=== PATIENT | female | born 1960 | race Caucasian/White ===

== ENCOUNTER 2023-12-22 11:00 | Outpatient (CLI) | payer MEDICARE, MEDICAID, SELFPAY ==
--- NOTE | 2023-12-22 09:30 | DI.RAD_ITS ---
Exam(s) XR PELVIS PREOP ORTHO EXAM: XR PELVIS PREOP ORTHO CLINICAL HISTORY: preop planning SUZANNA. TECHNIQUE: 2D digital imaging was performed.One images were obtained. COMPARISON: DX XR HIP MIN 2V LT from 07/08/2009 FINDINGS: BONES: No acute fracture is present. No bony destructive lesion is seen. JOINTS: No dislocation present. In the left hip there is loss of the superior joint space with bone o n bone. There is also mild flattening of the articular surface of both the acetabulum and the femora l head. There is subchondral sclerosis of the acetabulum and acetabular spurring. Subchondral cysts and sclerosis are seen at the articular surface of the femoral head. This may be degenerative in na ture, however underlying avascular necrosis should also be considered. There is moderate narrowing o f the right hip joint space. SOFT TISSUE: Normal. IMPRESSION: Advanced arthrosis of the left hip as described above. DATA REPOSITORY: RADIATION DOSE DELIVERED:
== END 2023-12-22 11:01 | disposition home or self-care (01) ==
LOC: DIORS 11:01
PROVIDERS: PCP Family Medicine; Referring Provider Family Medicine; Visit Provider Student in an Organized Health Care Education/Training Program
DX: M16.12 Unilateral primary osteoarthritis, left hip (principal)
CPT/HCPCS: 99203; 72190

== ENCOUNTER 2024-01-17 09:44 | Observation (INO) | payer MEDICARE, MEDICAID, SELFPAY ==
[2024-01-17] VITALS (19 sets, daily range): BP systolic 93–141; BP diastolic 42–82; PULSE 47–75; RESP 1–23; TEMP 36–37.1; O2SAT 93–100; BMI 39.4
[2024-01-17] MEDS: Celecoxib 200 MG CAP 400 MG PO (08:39)
[2024-01-17] MEDS: Lactated Ringers 1,000 ML 80 ML IV (08:39)
[2024-01-17] MEDS: Acetaminophen 500 MG TAB 1000 MG PO ×3 (08:40→22:38)
--- NOTE | 2024-01-17 08:44 | W.ANESPRE ---
General Info Date of Service Date Performed: 01/17/24 Height: 5 ft 8.5 in Weight: 119.4 kg Body Mass Index (BMI): 39.4 Surgical Procedure: Operation Date: 01/17/24 11:20 Proposed Procedure Side Surgeon p Hip Total Hip Anterior, ACTIS Left Marcos Gibbs MD Meds Allergies and Home Medications Allergies Allergy/AdvReac Type Severity Reaction Status Date / Time enalapril Allergy Unknown unlisted Verified 01/17/24 08:30 amoxicillin Allergy Itching Verified 01/17/24 08:30 codeine AdvReac Mild vomiting Verified 01/17/24 08:30 letrozole AdvReac Unknown Unknown Verified 01/17/24 08:30 acetaminophen (From Vicodin) AdvReac chest Verified 01/17/24 08:30 tightness cephalexin AdvReac vomiting Verified 01/17/24 08:30 hydrocodone (From Vicodin) AdvReac chest Verified 01/17/24 08:30 tightness omeprazole AdvReac Other (See Verified 01/17/24 08:30 Comment) Home Medication ?Medication ?Instructions ?Recorded acetaminophen 500 mg tablet 500 mg PO Q6H PRN 10/11/23 albuterol 90 mcg/actuation aerosol mcg inhalation DIRECTED 10/11/23 inhaler amlodipine 5 mg tablet 5 mg PO DAILY 10/11/23 cetirizine 10 mg tablet 10 mg PO DAILY PRN 10/11/23 chlorthalidone 25 mg tablet 12.5 mg PO DAILY 10/11/23 cholecalciferol (vitamin D3) 50 100 mcg PO DAILY 10/11/23 mcg (2,000 unit) capsule fluticasone furoate 200 1 inh inhalation DAILY 10/11/23 mcg/actuation blister powder for inhalation (Arnuity Ellipta) fluticasone propionate 50 1 spray intranasal BID 10/11/23 mcg/actuation nasal spray,suspension (Allergy Relief (fluticasone)) ipratropium bromide 17 2 puff inhalation Q8H 10/11/23 mcg/actuation HFA aerosol inhaler (Atrovent HFA) potassium chloride 20 mEq 20 meq PO DAILY 10/11/23 tablet,extended release vit C-vit M-ciegom-bjzikslp capsule 1 cap PO DIRECTED 10/11/23 flaxseed oil 1,000 mg capsule 1,000 mg PO DAILY 12/22/23 magnesium oxide 400 mg (241.3 mg 400 mg PO DAILY 12/22/23 magnesium) tablet mecobalamin (vitamin B12) 2,500 2,500 mcg PO DAILY 12/22/23 mcg chewable tablet kfuhzude-[id number]-[id number] 250 mg-dha 90 1 cap PO DAILY 12/22/23 mg-epa 160 ox-aybd-gaap-zeax capsule (Ocuvite Adult 50 Plus) Current Visit Medications: Current Medications Generic Name Dose Route Start Last Admin Trade Name Frelemuel PRN Reason Stop Dose Admin Acetaminophen 1,000 mg 01/17/24 06:00 01/17/24 08:40 Acetaminophen 500 Mg Tab PO 02/15/24 23:59 1,000 mg PREOP COREY Administration Celecoxib 400 mg 01/17/24 06:00 01/17/24 08:39 Celecoxib 200 Mg Cap PO 02/15/24 23:59 400 mg PREOP COREY Administration Ringer's Solution 1,000 mls @ 80 mls/hr 01/17/24 06:00 01/17/24 08:39 IV 02/15/24 23:59 80 mls/hr INFUSION COREY Administration Tranexamic Acid/Sodium Chloride 1,000 mg in 100 mls @ 600 mls/hr 01/17/24 06:00 IVPB 02/15/24 23:59 PREOP COREY Cefazolin Sodium 3,000 mg/ 100 mls @ 200 mls/hr 01/17/24 06:00 Sodium Chloride IVPB 01/17/24 16:00 PREOP COREY IV Miscellaneous Supplies 1 each 01/17/24 06:00 Iv Access IV 02/15/24 23:59 DIRECTED COREY Sodium Chloride 0 ml 01/17/24 06:00 Normal Saline Flush 10 Ml Syr IV 02/15/24 23:59 PRN PRN Sodium Chloride 0 ml 01/17/24 06:00 Normal Saline 10 Ml Vial IJ 02/15/24 23:59 DIRECTED PRN Sterile Water 0 ml 01/17/24 06:00 Water,Injection,Sterile 10 Ml Vial IJ 02/15/24 23:59 DIRECTED PRN PFSH Active Problems Active Problems: Problem Status Onset Code Osteoarthritis of left hip Acute M16.12 Obesity Chronic E66.9 Malignant tumor of breast Chronic C50.919 Hyperlipidemia Acute E78.5 Hypertensive disorder Chronic I10 Asthma Chronic J45.909 Medical History Medical History H/O hordeolum Verruca plantaris Rosacea Onychomycosis Fracture of right distal radius Surgical History Surgical History History of inguinal hernia repair History of left mastectomy Tobacco Smoking/Tobacco Use Status: Former Tobacco Use Alcohol Alcohol Intake: current Alcohol intake frequency: holidays/special occasions only Substance Use Substance use: Never Substance use type: does not use Vital Signs and Lab Results Vital Signs Most Recent Vital Signs in EMR: Most Recent Vital Signs Temp Pulse Resp BP Pulse Ox 37.1 C 75 16 139/79 99 01/17/24 08:33 01/17/24 08:33 01/17/24 08:33 01/17/24 08:33 01/17/24 08:33 Lab Results Blood Type / Crossmatch: No Data to Display Complete Blood Count: No Data to Display Complete Metabolic Panel: No Data to Display Liver Function Panel: No Data to Display Coagulation Panel: No Data to Display Cardiac Panel: No Data to Display Arterial Blood Gas: No Data to Display Venous Blood Gas: No Data to Display Pancreas Panel: No Data to Display Thyroid Panel: No Data to Display Infectious Disease: No Data to Display Blood Cultures: No Data to Display Toxicology Panel: No Data to Display Anesthesia Assessment and Plan Anesthesia History Personal History: PONV Family History: No Family History of Anesthesia Complications Exercise Tolerance Exercise Tolerance: Metabolic Equivalents<4 Pertinent Negatives Pertinent Negatives: No Symptoms of GERD, No Major Cardiovascular Symptoms or Complaints and No Major Pulmonary Symptoms or Complaints (some allergic nasal congestion with clear phlegm expectorated this am, used scheduled and rescue inhaler) Cardiac & Pulmonary Exam Cardiac Exam: Normal S1/S2 Heart Sounds Pulmonary Exam: Clear Bilateral Breath Sounds Implantable Cardiac Device Does patient have a Pacemaker or an ICD?: No Airway Exam Known Difficult Airway: No Mallampati Class: 2 Mouth Opening: Normal (> 3cm) Thyromental Distance: Greater than 3 cm Neck Range of Motion: Full ROM Neck Circumference: Normal Teeth Condition: Normal Dentition ASA Classification ASA Score: ASA 3 Emergency Case?: No NPO Status NPO Status: NPO Clears >2 hours, Solids >8 hours Anesthesia Plan Resuscitation Status: Full Code Anesthesia Technique: Spinal Anesthesia Airway Planned: Natural Airway Monitors Used: Standard Monitors Preoperative Comments:: Hx of severe PONV, plan palonosetron for prophylaxis.
[2024-01-17] MEDS: ceFAZolin 3,000 MG in Normal Saline 100 ML 200 MG IVPB (10:05)
[2024-01-17] MEDS: TRANEXAMIC ACID/SOD. CHL. 1,000 MG/100 ML BAG 600 MG IVPB (10:15)
--- NOTE | 2024-01-17 10:22 | W.PM.OP ---
Date of service: 01/17/24 Time of Service: 10:22 Operative Note Operative Note PRE-OP DIAGNOSIS: Left Hip Osteoarthritis POST-OP DIAGNOSIS: same PROCEDURE: Left Anterior Total Hip Arthroplasty with Intraoperative Navigation SURGEON: Marcos Gibbs ANESTHESIA TYPE: Spinal Refer to Anesthesia Record ESTIMATED BLOOD LOSS: 200 PATHOLOGY: none sent TOURNIQUET TIME: 0 COMPLICATIONS: None Patient was transported to: PACU Patient's condition: stable Implants: 1. Depuy [place] Acetabular Component, 58mm 2. Depuy Acetabular Liner, [id number] 3. Depuy Actis High Offset Collared Femoral Stem, Size 8 4. Depuy Altrx Ceramic Femoral Head, Size 36+1.5mm Indications: I have seen in clinic for symptoms of hip arthritis, confirmed with radiographic findings. has exhausted nonoperative methods and was having significant limitations in daily function and desired better function and less pain. I discussed the technical details of a hip replacement. I explained the risks of the procedure to include, but not limited to, bleeding, infection, pain, stiffness, fracture, damage to nerves and vessels, damage to muscles and tendons, loosening, instability, leg length inequality, need for repeat procedure, blood clot and cardiopulmonary demise. Despite these risks, elected to proceed. Findings: There was significant signs of arthritis throughout the hip with notable deformity of the femoral head. Procedure Description: was greeted in the preoperative holding area where the correct side was identified and marked. The consent was reviewed with the patient and signed. The history and physical was updated. All questions were answered. She was taken back to the operating room. A spinal anesthestic was then administered. The feet were wrapped with cast padding and Coban and then placed into the boot liners and then into the boots. Care was taken to protect the skin and make sure the heels were fully down and the boots were stable. The patient was then positioned onto the HANA table. Both legs were held in a neutral position. SCDs were applied. The patient was then slid down onto a peroneal post. Prophylactic antibiotics in the form of Cefazolin were administered. 1g of Tranxemic Acid was given intravenously within 30 minutes of incision. The left leg was then prepped with Chloraprep and draped in a standard fashion. A second prep with Chloraprep was performed prior to placement of a shower-curtain type drape with Iodine impregnated skin protection. A timeout to confirm correct identity, side and site, procedure, allergies, anesthesia, and medical concerns was performed. An obliquely oriented incision was made starting lateral to the ASIS and running distal over the Tensor Fascia Nelly (TFL) muscle belly toward the fibular head, approximately 10cm. The skin and soft tissue was dissected sharply, through Efrain?s fascia, and to the fascia of the TFL. With the fascia and superior border of the IT band identified, the fascia was incised with a new knife just above any perforators from the IT band. The TFL muscle belly was bluntly dissected away from the fascia and moved laterally. The fat between TFL and rectus was identified to ensure the dissection was not within the TFL. Blunt dissection created space between abductors and the capsule and retractor was placed over the lateral femoral neck. The fibers of the rectus femoris tendon were identified and these were freed from the anterior capsule. A second cobra retractor was placed around the medial femoral neck. The TFL was further retracted laterally to show the deep fascia. Careful dissection through this layer identified three main crossing vessels of the lateral femoral circumflex. These were cauterized in multiple locations and then cut without any noticeable bleeding. The TFL was further released bluntly from the deep fascia to expose anterior hip capsule and fat The [place] orthopaedic retractor was then placed beneath the TFL and against sartorius and medial soft tissues to protect and retract the soft tissues. A T-capsulotomy was then performed starting at the superior lateral acetabulum and moving distally to the intertrochanteric ridge. These capsular flaps were tagged with a No. 1 Ethibond and elevated from within. The capsular flaps were released to the shoulder of the lateral neck and to the lesser trochanter to give excellent visualization of the proximal femur. A neck osteotomy was performed using an oscillating saw based on preoperative templates. This cut started in the shoulder and of the lateral neck and exited medially. The saw was at all times directed medially to avoid injury to the greater trochanter. Gross traction was applied to the leg and the osteotomy opened. The femoral head was removed with a corkscrew, making sure to protect the TFL on its exit. The femoral head had notable deformity and flattening. Traction was released after head removal. This was measured on the back table to determine the starting reamer size. Portions of the rectus obscuring visualization were minimally elevated off the superior acetabulum. An anterior retractor was placed over the anterior wall between capsule and labrum and attached to the Gripper retraction system. The femur was rotated to 90 degrees and medial capsule was fully released until the lesser trochanter was palpable and visible; the femur was returned to 30 degrees. A posterior retractor was placed similarly between capsule and labrum. This provided excellent visualization. The contents of the cotyloid fossa were removed with electrocautery and the labrum was removed with a knife. There was a notable floor osteophyte. There was significant chondromalacia of the superior acetabulum. Acetabular reaming began with a 52mm reamer. This first reaming was directed anterior to posterior and medial to get down to the true floor. This was inspected and reamed until the true floor was reached. The anterior retractor was then released and entry and exit was provided by traction on the capsular flaps. I then reamed sequentially up to a 58mm reamer where good fit was obtained. The larger reamers were oriented based on anatomical reference of the anterior and lateral law to ensure proper abduction and anteversion. Positioning and size was confirmed with the fluoroscopy. A 58mm Depuy [place] acetabular component was selected. The acetabulum was reamed around the periphery with the selected acetabular size to prevent a rim fit. The deep tissues were irrigated. The acetabular component was then impacted in a position of about 40-45 degrees of abduction and 15-20 degrees of anteversion, using the patient?s anatomy as the ultimate landmark. Fluoroscopy was used to confirm this. There was excellent art history professor of the acetabular component and the inserting handle was removed. The acetabular liner, Depuy [id number] polyethylene liner, was inserted and lined up with the tines of the acetabular component. There was no soft tissue interposition. The liner was then impacted into position and confirmed to be well-seated. A portion of the jerri-articular cocktail was then injected around the acetabulum into the capsule and periosteum. This cocktail consisted of 123mg of Ropivacaine, 0.25mg of Epinephrine, 0.04mg of Clonidine, and 15mg of Ketorolac, diluted to 50cc. The leg was rotated to 120 degrees. Any remaining medial capsule was released until the lesser trochanter was easily palpable. A retractor was placed medially. The lateral capsule was further released into the shoulder to allow access to the greater trochanter. A Winter retractor was placed over the greater trochanter which allowed the trochanter to flip in front of the capsule for excellent exposure. The leg was brought down into maximal extension and 20 degrees of adduction while ensuring there was no impingement on the acetabulum. Any remnant capsule within the trochanter was released. Piriformis and obturator externis were identified and protected. There was excellent access to the proximal femur. The lateral neck remnant was removed with a rongeur. A blunt canal probe was used to identify the canal and trajectory for later broaching. A box osteotome initiated the broach course. A small curved rasp and a curved curette were used to work laterally. Broaching then began with a starter Actis broach. This was inserted manually around the trochanter and into the canal before mallet blows. The broach was seated to a few millimeters below the cut level based on the neck cut and the preoperative template. Sequential broaching was continued with the Socket Mobile pneumatic broaching device until a tight fit was obtained with good rotational control of the femur. A trial standard neck was inserted along with a +5 trial head. The leg was brought out of extension and adduction and then reduced with traction and internal rotation. The leg was stable anteriorly in a position of 30 degrees of extension and 90 degrees of external rotation. Fluoroscopy was used to ensure there was no fracture and the stem was seated well. Leg lengths were checked with an AP pelvis and pelvic reference points. [employer] navigation system was used to confirm appropriate positioning and leg length and offset. This showed that we had over-corrected leg length but slightly undercorrected offset, improved by using a high offset stem and +1.5mm head. Once content with the desired offset and leg lengths, the leg was brought back into extension, external rotation and adduction. The periosteum and surrounding tissue was injected with remaining portion of the jerri-articular cocktail. The proximal femur was irrigated as well as the deep tissues. The Depuy Actis high offset collared stem, size 8, was then manually inserted into the proximal femur making sure to control rotation. It was then malleted into position with light blows, giving breaks to allow bone expansion and decrease risk of fracture. The selected Depuy Altrx Ceramic Head, size 36+1.5mm, was then placed onto the clean and dry trunnion and secured with impaction onto the tapered fit. The leg was brought back out of extension and adduction and reduced with traction and internal rotation. Stability was confirmed with no shuck at 90 degrees of external rotation and 30 degrees of extension. No impingement through range of motion arc. Final x-ray images were obtained with fluoroscopy to confirm adequate positioning and no intraoperative fracture. The deep tissues were thoroughly irrigated with Surgiphor, betadine solution. This was allowed to sit in the wound for 3 minutes before being thoroughly irrigated out with normal saline. The capsule was then reapproximated with the previously placed Ethibond sutures. The TFL fascia was finally closed with a No. 2 Stratafix, barbed suture. Deep tissues were then reapproximated with 0 Vicryl and a running 2-0 Vicryl. The skin was closed with a running 4-0 Monocryl in a subcuticular fashion. This was reinforced with skin glue. A Mepilex silver dressing was applied. At the end of the case, all counts were correct. was transferred to the hospital bed without difficulty and suffering no apparent complication. has a good prognosis. Physical therapy will start today and without restrictions, weight-bearing as tolerated. Aspirin 81mg BID will be used for DVT prophylaxis.
--- NOTE | 2024-01-17 11:28 | DI.RAD_ITS ---
Exam(s) XR HIP LT IN OR EXAM: XR HIP LT IN OR CLINICAL HISTORY: left hip osteoarthritis TECHNIQUE: 2D and realtime digital imaging was performed. CONTRAST MATERIAL: Refer to procedure report. COMPARISON: CR XR PELVIS PREOP ORTHO from 12/22/2023 FINDINGS: Fluoroscopy was provided for Dr. Gibbs during the performance of a left total hip replacement. P lease refer to the procedure report for complete details. Ka,r=6.33 mGy IMPRESSION: RADIATION DOSE DELIVERED: 0.0 0.0 0
[2024-01-17] MEDS: fentaNYL 100 MCG/2 ML VIAL IVP (11:55)
--- NOTE | 2024-01-17 13:18 | PT.INIE ---
PT Notes Visit Reasons: Left hip DJD Physical Therapy Day Surgery Initial Evaluation Date: 01/17/2024 Referring Doctor: Daisy Paredes PT Orders: PT CONSULT: WBA no restrictions Precautions: Standard Patient Profile/Admitting Diagnosis: S/p left SUZANNA 01/17/2024 PMHX: All Active Problems (Updated 12/22/23 @ 08:56 by MOON Lerma) Osteoarthritis of left hip (Acute) Obesity (Chronic) Malignant tumor of breast (Chronic) Hyperlipidemia (Acute) Hypertensive disorder (Chronic) Asthma (Chronic) Medical History (Updated 12/22/23 @ 08:56 by MOON Lerma) Verruca plantaris Rosacea Onychomycosis Fracture of right distal radius Surgical History (Updated 10/11/23 @ 09:10 by Mimi Augustine RN) History of inguinal hernia repair History of left mastectomy Social History/Home Situation: Patient has assistance from her sister and her [id number] with getting in and out of her home which has a ramp and 1 step getting into the home. She has a RW at home and is advised to utilize this and is given guidance with progression to SPC. Equipment Owned/DME: RW Subjective: I am concerned that the RW will take off on me going down the ramp after PT session today this is confirmed that this would not happen and she feels much more confident and will use RW at home. She is also given advice as to how to progress to SPC versus using quad cane. Objective: Patient is presenting sitting in recliner alert and orientated noting that pain is starting to escalate General Observation: Patient appears generally healthy and able to carry on full conversation. Mental Status: A&O x 3 Pain: 5/10 ROM: Right Upper Extremity: WFL Left Upper Extremity: WFL Right Lower Extremity: WFL Left Lower Extremity: Mildly limited hip flexion 100 and seated Strength: Right Upper Extremity: WFL Left Upper Extremity: WFL Right Lower Extremity: WFL, did not test PF Left Lower Extremity: Unable to test PF has 3/5 within available ROM of hip flexion, knee extension and knee flexion did not test abduction Sensation: Intact to light touch LE except for over surgical area Bed Mobility/Transfers: NT as patient was found sitting Sit to stand independent Stand to sit independent Bed to chair NT Gait: Ambulates with RW with VC for pacing encouraging patient to actively flex knee after midstance and to perform step through gait pattern as she feels more comfortable. She is independent with ambulation and with safe with ambulation for 150 feet. Balance: Static Sitting: Normal Dynamic Sitting: normal Static Standing: Good Dynamic Standing: Poor is unable to stand on single leg and needs support making managing stairs without rail difficult she does only have 1 step at home and she has assist of 2 to help her get into her home. She has good understanding of dynamics of stair progression. Special Tests: Negative Jyoti Treatment:Therapeutic Activities - (37487 x[1]): instruction in dynamic activities with one on one patient contact by the provider to improve functional performance?as follows: ? Review of DVT and preambulation exercises as issued in handout. Transfers of sit to stand stand to sit and on and off toilet all performed today with patient needing guidance for hand placement until able to perform a couple of repetitions independently. She is able to do without assistance. Ambulation with RW, for 150 feet, including changing directions maneuvering utilizing clock step to avoid any pivoting. Patient is encouraged to perform a step through gait pattern she initially starts with step to gait pattern and locks her left leg she is encouraged to perform normal ambulation techniques with walking utilizing the RW for balance and to decrease leaning on the RW. She is independent with this. We also perform stairs 1 at a time good leading with the right going up and down leading with the left, we do perform this with moderate assist as patient has no rails at home we would like to educate her with use of no railing such that she can get into her home. She actually only has 1 stair at home and this is instructed to her sister who she will also be helping her get into her home. Informed Consent/Education: Patient instructed in purpose of PT consult. Packet containing SUZANNA exercise protocol has been given to patient. Education and training on initial set of exercises that can be done at home have been completed with patient. Assessment: Patient presents with clinical signs and symptoms consistent with current/admitting diagnoses that have resulted to mobility limitations, gait instability, generalized weakness, and impairment of motor control as demonstrated by the following impairment level findings: 1. Decreased strength to left knee major muscle groups 2. Impaired standing balance 3. Limitation of joint range of motion in left knee Impairments are contributing to the following functional limitations: 1. Inability to safely ambulate without assistive device 2. Increase completion time for mobility ADL performance 3. Increased fall risk Patient is assessed as a low complexity based on the following: History: 63-year-old female with impairment level findings, functional limitations, and past medical history as indicated above Examination: Demonstrable impairment in strength, balance, and mobility level with underlying impairments and functional limitations as documented above Presentation: Evolving Decision Making: Low Goals: N/A. PT evaluation and 1 treatment session only for functional mobility training using recommended AD and for HEP instruction. Plan of Care/Treatment Plan: N/A. PT evaluation and 1 treatment session only for functional mobility training using recommended AD and for HEP instruction. DISCHARGE RECOMMENDATIONS: Home, has RW at home TREATMENT CODE/TIME: 64934/[id number] 1:35-2:05 30' Thank you for the opportunity to participate in the care of this patient. Please sign an return this page within 30 days if you agree with the above POC. Thank you! Physician Signature Date [facility]
--- NOTE | 2024-01-17 13:28 | W.ANESPOSTOP ---
Postoperative Evaluation Date, Time and Location Date Performed: 01/17/24 Time Performed: 12:52 Patient Location: Day Surgery Unit Vital Signs Most Recent Imported Vital Signs: Most Recent Vital Signs Temp Pulse Resp BP Pulse Ox 36.4 C L 60 16 139/82 93 01/17/24 12:53 01/17/24 12:53 01/17/24 12:53 01/17/24 12:53 01/17/24 12:53 Pain Score Most Recent Pain Score: Most Recent Pain Score Pain Level 2 01/17/24 12:53 Assessment Mental Status: Awake (Alert & Oriented to Patient Baseline) Airway and Respiratory Function: Patent airway with normal (patient baseline) respiratory exam Cardiovascular Function: Hemodynamically Stable Hydration Status: Adequately Hydrated Nausea & Vomiting: No Nausea or Vomiting Pain: Pain is tolerable per patient Peripheral Nerve Block: Patient did not receive a nerve block
[2024-01-17] MEDS: oxyCODONE 5 MG TAB PO (13:30)
[2024-01-17] MEDS: Midodrine 2.5 MG TAB PO (17:25)
[2024-01-17] MEDS: DEXTROSE 5%-WATER 500 ML 1000 ML IV (18:20)
[2024-01-17] MEDS: Lactated Ringers 1,000 ML 30 ML IV (19:00)
[2024-01-17] MEDS: Celecoxib 200 MG CAP PO (20:10)
[2024-01-17] MEDS: ceFAZolin 1 GM/50 ML BAG IVPB (20:11)
[2024-01-17] MEDS: Aspirin E.C. 81 MG TABEC PO (20:11)
[2024-01-18] MEDS: ceFAZolin 1 GM/50 ML BAG IVPB (02:59)
[2024-01-18 03:20] VITALS: BP 128/71; PULSE 58; RESP 18; TEMP 36.3; O2SAT 99
[2024-01-18] MEDS: Acetaminophen 500 MG TAB 1000 MG PO (05:44)
--- NOTE | 2024-01-18 07:12 | DSE_ITS ---
Date of service: 01/18/24 Time of Service: 07:12 DS: Diagnosis Discharge Diagnosis (1) Osteoarthritis of left hip: Status: Acute Discharge Plan Disposition Patient Disposition: Home Condition: Good Discharge Details Reason For Visit: Left hip DJD Admit Date/Time: 01/17/24 18:03 Admit Provider: Marcos Gibbs Attending Provider: Marcos Gibbs Primary Care Provider: Bautista Fernandez Hospital Course Hospital Course: Patient was admitted to the medical/surgical floor following the procedure due to some persistent nausea and lightheadedness. Otherwise, the surgery was tolerated well without any notable medical, surgical, or anesthetic complications. Mobilization began postoperatively. She was voiding spontaneously. Vitals were stable. Physical therapy worked with the patient and was cleared for discharge home. She was observed overnight and had improvement with her symptoms. Pain was controlled on oral regimen. Home Meds and New Rx's Prescriptions: New celecoxib [Celebrex] 200 mg capsule 200 mg PO BID PRNQty: 60 0RF Rx Instructions: Take one tablet twice daily for pain and inflammation aspirin 81 mg tablet,delayed release (DR/EC) 81 mg PO BID 30 Days Qty: 60 0RF acetaminophen 500 mg tablet 1,000 mg PO Q8H PRN Qty: 90 0RF Rx Instructions: Take two tablets up to every 8 hours as needed for pain pantoprazole 40 mg tablet,delayed release (DR/EC) 40 mg PO DAILY 14 Days Qty: 14 0RF dexamethasone 4 mg tablet 4 mg PO DAILY Qty: 2 0RF Rx Instructions: Take one tablet once daily for two days docusate sodium [Colace] 100 mg capsule 100 mg PO BID Qty: 30 0RF tramadol 50 mg tablet 50 mg PO Q4H PRNQty: 18 0RF Continued magnesium oxide 400 mg (241.3 mg magnesium) tablet 400 mg PO DAILY mecobalamin (vitamin B12) 2,500 mcg tablet,chewable 2,500 mcg PO DAILY Ocuvite Adult 50 Plus 250 mg (90 mg-160 mg) capsule 1 cap PO DAILY flaxseed oil 1,000 mg capsule 1,000 mg PO DAILY Rx Instructions: administer with a meal albuterol 90 mcg/actuation aerosol inhalation DIRECTED amlodipine 5 mg tablet 5 mg PO DAILY Arnuity Ellipta 200 mcg/actuation blister with device 1 inh inhalation DAILY Atrovent HFA 17 mcg/actuation HFA aerosol inhaler 2 puff inhalation Q8H cetirizine 10 mg tablet 10 mg PO DAILY PRN chlorthalidone 25 mg tablet 12.5 mg PO DAILY cholecalciferol (vitamin D3) 50 mcg (2,000 unit) capsule 100 mcg PO DAILY fluticasone propionate [Allergy Relief (fluticasone)] 50 mcg/actuation spray,suspension 1 spray intranasal BID Rx Instructions: administer into each nostril vit C-vit O-xswkie-lqgeycjy Capsule 1 cap PO DIRECTED potassium chloride 20 mEq tablet extended release 20 meq PO DAILY Discontinued acetaminophen 500 mg tablet 500 mg PO Q6H PRN Discharge Instructions Additional Instructions: Total Hip Discharge Instructions Activity: The most important activity is to walk. You should try to take short walks a few times a day. You have no restrictions on movement or positioning, but do not try to force what you do. You will find some stiffness and weakness with hip flexion (lifting your knee). Do not try to strengthen this too early, continue to practice walking and stairs and this will come. - Outpatient physical therapy can be helpful to help return you to a normal gait and improve your flexibility and strength. This can start around 2 weeks. For some patients, it?s not necessary. Usually this is determined at the time of discharge or at the first post-operative visit. - You should wear the GERI hose on both legs for 2 weeks. Dressing: Keep the surgical dressing in place for at least one week. After the first week it may be removed and replace with light gauze and tape or nothing. It may get wet after 3 days but avoid soaking the dressing. If it gets wet, just lightly pat dry. It is important to always keep some gauze between skin folds, especially when you are sitting. Spend some time with the wound exposed when you are lying flat as the incision does wrinkle onto itself. Medications: - You should take Tylenol and an anti-inflammatory Celebrex as your primary pain control medications. If the Celebrex is too expensive or not covered, please call the office for another alternative (Advil/Ibuprofen or Naproxen/Aleve). - You have been prescribed a stronger pain medication Tramadol for breakthrough pain, take as needed as prescribed. - You have also been prescribed a stomach acid reduction agent Pantoprozole to help reduce stomach acid and reflux. - You have also been prescribed Decadron to help with post-operative nausea and pain. You will take this for two days starting tomorrow. - You will be taking Aspirin 81mg twice a day for DVT prevention unless instructed otherwise. - If you have constipation you should take Colace (which has been prescribed) or Miralax (which is available [id number]). It takes most people 3-4 days to have a bowel movement. Follow-up: 2 weeks If you have any acute concerns or questions, please do not hesitate to contact the office at [phone]. You may contact Dr. Gibbs with any questions after hours through the hospital at [phone] or on his cell phone at [phone]. Stand Alone Forms: Anesthesia Discharge InstCarroll, Blanca Gaspar ([facility]) Referrals: Marcos Gibbs MD [ [facility] STAFF PHYSICIAN] - Activity:: Activity as Tolerated Equipment/Supplies:: Walker Diet:: As Tolerated Discharge Orders Discharge Orders: Discharge Order (Routine); Ordered 01/18/24 Ordered By: Marcos Gibbs DS: Summary Time Spent with Patient providing and/or coordinating discharge services: Less than 30 minutes Status at Discharge Functional status at discharge: uses cane/walker Overall status at discharge: patient is progressing back to baseline Mental Status: mental status grossly normal Speech and Movement: speech and movement normal Mood: congruent mood Affect: normal affect Quality:SDOH Health Related Social Needs: No Data to Display Exam Psych Mental Status: mental status grossly normal Speech and Movement: speech and movement normal Mood: congruent mood Affect: normal affect DS: Data Vitals/I&O Vitals and I&O: Vital Signs Temperature 98.8 F 01/17/24 08:33 Pulse 75 01/17/24 08:33 Pulse Rhythm Regular 01/17/24 08:33 Respiratory Rate 16 01/17/24 08:33 Respiratory Depth Normal 01/17/24 08:33 Blood Pressure 139/79 01/17/24 08:33 Pulse Oximetry 99 01/17/24 08:33 Oxygen Delivery Method Room Air 01/17/24 08:33 Oxygen Flow Rate 0 01/17/24 08:33 Pain Level 0 01/17/24 08:33 Intake & Output 01/16/24 01/16/24 01/17/24 11:59 23:59 11:59 Weight 266 lb 15.994 oz 263 lb 3.711 oz PFSH All Active Problems Osteoarthritis of left hip (Acute) Obesity (Chronic) Malignant tumor of breast (Chronic) Hyperlipidemia (Acute) Hypertensive disorder (Chronic) Asthma (Chronic) Medical History H/O hordeolum Verruca plantaris Rosacea Onychomycosis Fracture of right distal radius Surgical History History of inguinal hernia repair History of left mastectomy Social History Smoking/Tobacco Use Status: Former Tobacco Use Quit Date: 06/27/79 Smoking risk assessment performed?: Yes Alcohol Intake: current Alcohol Intake frequency: holidays/special occasions only Drug use: Never Substance use type: does not use Housing: house Do you feel safe at home: Yes Additional Social history: lives alone Time Spent with Patient Time Spent with Patient: <45 minutes Time was spent: preparing to see the patient(eg.review tests), referring, communicating with other health critical care nurse practitioner, indepentently interpreting results and counseling the patient
[2024-01-18 07:19] VITALS: BP 128/70; PULSE 54; RESP 17; TEMP 36.1; O2SAT 99
[2024-01-18] MEDS: Pantoprazole 40 MG TABCR PO (07:22)
[2024-01-18] MEDS: Cholecalciferol (Vitamin D3) 1,000 UNIT TAB 2000 UNITS PO (07:55)
[2024-01-18] MEDS: Magnesium Oxide 400 MG TAB PO (07:58)
[2024-01-18] MEDS: Dexamethasone 4 MG TAB PO (07:58)
[2024-01-18] MEDS: Aspirin E.C. 81 MG TABEC PO (07:58)
[2024-01-18] MEDS: Celecoxib 200 MG CAP PO (07:58)
--- NOTE | 2024-01-18 09:44 | RESPIRATORY ---
RT found patient's own Arnuity Ellipta inhaler in patient's room this morning. Patient advised she had self-administered morning dose. Medication taken to pharmacy to be labeled and RT notified nursing staff.
== END 2024-01-18 09:41 | disposition home or self-care (01) ==
LOC: SUR 13:16 → MS 18:46
PROVIDERS: Admitting Provider Student in an Organized Health Care Education/Training Program; PCP Family Medicine; Visit Provider Student in an Organized Health Care Education/Training Program
PROC: (CPT 27130; principal; 2024-01-17 11:00)
DX: M16.12 Unilateral primary osteoarthritis, left hip (principal); E66.9 Obesity, unspecified; E78.5 Hyperlipidemia, unspecified; I10 Essential (primary) hypertension; J45.909 Unspecified asthma, uncomplicated; Z85.3 Personal history of malignant neoplasm of breast; R11.0 Nausea; R42 Dizziness and giddiness
CPT/HCPCS: 20985; 27130; 96361; 96365; 96366; 97161; 97530; 73501; C1776; G0378; J0690; J1100; J2001; J2250; J2371; J2401; J2405; J2469; J2704; J3010; J8540

== ENCOUNTER 2024-01-30 13:28 | Outpatient (CLI) | payer MEDICARE, MEDICAID, SELFPAY ==
--- NOTE | 2024-01-30 14:02 | DI.RAD_ITS ---
Exam(s) XR HIP LT COMPLETE AP PELVIS EXAM: XR HIP LT COMPLETE AP PELVIS CLINICAL HISTORY: F/U LEFT SUZANNA. TECHNIQUE: 2D digital imaging was performed. COMPARISON: 01/17/2024 FINDINGS: Two views There is satisfactory position alignment of the components of the recently placed left hip prosthesis . No fracture or loosening evident. IMPRESSION: Stable satisfactory appearance of recently placed left hip prosthesis. DATA REPOSITORY: RADIATION DOSE DELIVERED:
== END 2024-01-30 13:29 | disposition home or self-care (01) ==
LOC: DIORS 13:28
PROVIDERS: PCP Family Medicine; Referring Provider Family Medicine; Visit Provider Student in an Organized Health Care Education/Training Program
DX: Z96.642 Presence of left artificial hip joint (principal); Z47.1 Aftercare following joint replacement surgery
CPT/HCPCS: 73502

== ENCOUNTER → 2024-03-01 13:06 | Outpatient (BNVA) | payer MEDICARE, MEDICAID, SELFPAY | PROVIDERS: PCP Family Medicine; Referring Provider Family Medicine; Visit Provider Student in an Organized Health Care Education/Training Program | DX: Z47.1 Aftercare following joint replacement surgery (principal); Z96.642 Presence of left artificial hip joint ==

== ENCOUNTER 2025-01-17 13:20 | Outpatient (CLI) | payer MEDICARE, MEDICAID, SELFPAY ==
--- NOTE | 2025-01-17 11:30 | DI.RAD_ITS ---
Exam(s) XR HIP LT AP LAT ONLY EXAM: XR HIP LT AP LAT ONLY INDICATION: ANNUAL F/U L SUZANNA. COMPARISON: CR XR HIP LT COMPLETE AP PELVIS from 01/30/2024 TECHNIQUE: 2D digital imaging was performed. Two views. FINDINGS: Stable alignment left hip prosthesis. No abnormal surrounding lucencies. Prominent spurring noted at the pubic symphysis. DATA REPOSITORY: RADIATION DOSE DELIVERED:
== END 2025-01-17 13:21 | disposition home or self-care (01) ==
LOC: DIORS 13:20
PROVIDERS: PCP Family Medicine; Visit Provider Physician Assistant
DX: Z47.1 Aftercare following joint replacement surgery (principal); Z96.642 Presence of left artificial hip joint
CPT/HCPCS: 99212; 73502